=== PATIENT | male | born 1980 | race Caucasian/White ===

== ENCOUNTER 2020-06-22 15:09 | Emergency (ER) | payer BC ==
[2020-06-22] MEDS ORDERED: Diphtheria,Pertussis(Acell),Tetanus Vaccine 0.5 ML Syringe IM ONE (15:15)
--- NOTE | 2020-06-22 15:18 | EDM.PDOC ---
ED HPI GENERAL MEDICAL PROBLEM - General Chief Complaint: Upper Extremity Injury/Pain Stated Complaint: NAIL THROUGH FINGER ON LEFT HAND Time Seen by Provider: 06/22/20 15:16 - History of Present Illness INITIAL COMMENTS - FREE TEXT/NARRATIVE: History of present illness: Patient presents with a nail gun injury to his left hand. Just prior to arrival he was using a framing nail her and accidentally put a nail to the tips of his left second and third fingers. The patient has no other complaints no other injuries tetanus is not up-to-date he is having finger pain he denies any other medical problems movement makes it worse being still makes it better. Review of systems: As per history of present illness and below otherwise all systems reviewed and negative. Past medical history: As per history of present illness and as reviewed below otherwise noncontributory. Surgical history: As per history of present illness and as reviewed below otherwise noncontributory. Social history: No reported history of drug or alcohol abuse. Family history: As per history of present illness and as reviewed below otherwise noncontributory. Physical exam: HEENT: Atraumatic, normocephalic, pupils reactive, negative for conjunctival pallor or scleral icterus, mucous membranes moist, throat clear, neck supple, nontender, trachea midline. Lungs: Clear to auscultation, breath sounds equal bilaterally, chest nontender. Heart: S1S2, regular, negative for clicks, rubs, or JVD. Abdomen: Soft, nondistended, nontender. Negative for masses or hepatosplenomegaly. Negative for costovertebral tenderness. Pelvis: Stable nontender. Genitourinary: Deferred. Rectal: Deferred. Extremities: Atraumatic, negative for cords or calf pain. Neurovascular unremarkable. There is a framing nail going through the tips of the index and middle fingers of the left nondominant hand at an oblique angle from lateral to medial. Neuro: Awake, alert, oriented. Cranial nerves II through XII unremarkable. Cerebellum unremarkable. Motor and sensory unremarkable throughout. Exam nonfocal. Diagnostics: [] Therapeutics: [] Impression: [] Plan: [] Definitive disposition and diagnosis as appropriate pending reevaluation and review of above. left fingers Pain Score (Numeric/FACES): 3 - Related Data Allergies Allergy/AdvReac Type Severity Reaction Status Date / Time No Known Allergies Allergy Verified 08/24/20 15:12 Home Meds: Home Meds Amoxicillin/Clavulanate K [Augmentin 500-125 MG] 1 tab PO BID #20 tab 06/22/20 [Rx] Citalopram [Citalopram HBr] 30 mg PO DAILY 06/22/20 [History] Naproxen [Naprosyn] 500 mg PO Q12HR #20 tab 06/22/20 [Rx] Past Medical History HEENT History: Reports: None Cardiovascular History: Reports: None Respiratory History: Reports: None Gastrointestinal History: Reports: None Genitourinary History: Reports: None Musculoskeletal History: Reports: None Neurological History: Reports: None Psychiatric History: Reports: None Endocrine/Metabolic History: Reports: None Hematologic History: Reports: None Immunologic History: Reports: None Oncologic (Cancer) History: Reports: None Dermatologic History: Reports: None - Infectious Disease History Infectious Disease History: Reports: Chicken Pox - Past Surgical History Head Surgeries/Procedures: Reports: None HEENT Surgical History: Reports: None Cardiovascular Surgical History: Reports: None Respiratory Surgical History: Reports: None GI Surgical History: Reports: None Male Surgical History: Reports: Vasectomy Endocrine Surgical History: Reports: None Neurological Surgical History: Reports: None Musculoskeletal Surgical History: Reports: Other (See Below) Other Musculoskeletal Surgeries/Procedures:: ligament repair 3rd left digit Oncologic Surgical History: Reports: None Dermatological Surgical History: Reports: None Social & Family History - Family History Family Medical History: Noncontributory - Tobacco Use Smoking Status *Q: Never Smoker Second Hand Smoke Exposure: No - Caffeine Use Caffeine Use: Reports: Coffee, Soda - Recreational Drug Use Recreational Drug Use: No Review of Systems - Review of Systems Review Of Systems: See Below ED EXAM, GENERAL - Physical Exam Exam: See Below Course - Vital Signs Text/Narrative:: 2 view left hand read interpreted by me there is a foreign body nail going through the tips of the fingers with no bony involvement Procedure: Digital blocks in the second and third finger were performed with 5 mils 1% lidocaine with good anesthetic effect needle-nose pliers then used to remove the foreign body from the fingers. Without complication wounds were then irrigated extensively in the sink with hot soap and water Patient's tetanus will be updated Patient be discharged home with Augmentin. And naproxen Last Recorded V/S: Last Vital Signs Temp 36.2 C 08/24/20 15:12 Pulse 95 06/22/20 15:12 Resp 18 06/22/20 15:12 BP 148/82 H 06/22/20 15:12 Pulse Ox 98 06/22/20 15:12 - Orders/Labs/Meds Orders: Active Orders 24 hr Category Date Time Status Vaccines to be Administered [RC] PER UNIT ROUTINE Care 06/22/20 15:15 Active Hand 2V Lt [CR] Stat Exams 06/22/20 15:15 Taken Meds: Medications Discontinued Medications Generic Name Dose Route Start Last Admin Trade Name Kaylin PRN Reason Stop Dose Admin Diphtheria/Tetanus/Acell Pertussis 0.5 ml 06/22/20 15:15 06/22/20 15:39 Adacel IM 06/22/20 15:16 0.5 ml .ONCE ONE Administration Lidocaine HCl 10 ml 06/22/20 15:16 06/22/20 15:44 Xylocaine-Mpf 1% INJECT 06/22/20 15:17 10 ml ONETIME ONE Administration Departure - Departure Time of Disposition: 16:06 Disposition: Home, Self-Care 01 Condition: Good Clinical Impression: Foreign body in skin of finger - Discharge Information *PRESCRIPTION DRUG MONITORING PROGRAM REVIEWED*: Not Applicable *COPY OF PRESCRIPTION DRUG MONITORING REPORT IN PATIENT ELIAS: Not Applicable Instructions: Hand or Foot Foreign Body, Adult Forms: ED Department Discharge Additional Instructions: The following information is given to patients seen in the emergency department who are being discharged to home. This information is to outline your options for follow-up care. We provide all patients seen in our emergency department with a follow-up referral. The need for follow-up, as well as the timing and circumstances, are variable depending upon the specifics of your emergency department visit. If you don't have a primary care physician on staff, we will provide you with a referral. We always advise you to contact your personal physician following an emergency department visit to inform them of the circumstance of the visit and for follow-up with them and/or the need for any referrals to a consulting specialist. The emergency department will also refer you to a specialist when appropriate. This referral assures that you have the opportunity for follow-up care with a specialist. All of these measure are taken in an effort to provide you with optimal care, which includes your follow-up. Under all circumstances we always encourage you to contact your private physician who remains a resource for coordinating your care. When calling for follow-up care, please make the office aware that this follow-up is from your recent emergency room visit. If for any reason you are refused follow-up, please contact the [facility] Emergency Department at and asked to speak to the emergency department charge nurse. [facility] - [facility] [address] [place] [id number] [facility] [address] [place] [id number] Sepsis Event Note (ED) - Evaluation Sepsis Screening Result: No Definite Risk - Focused Exam Vital Signs: Vital Signs Temp Pulse Resp BP Pulse Ox 06/22/20 15:12 36.2 C 95 18 148/82 H 98 - My Orders Last 24 Hours: My Active Orders 06/22/20 15:15 Vaccines to be Administered [RC] PER UNIT ROUTINE Hand 2V Lt [CR] Stat - Assessment/Plan Last 24 Hours: My Active Orders 06/22/20 15:15 Vaccines to be Administered [RC] PER UNIT ROUTINE Hand 2V Lt [CR] Stat
--- NOTE | 2020-06-22 15:57 | CR ---
Left hand: 2 views left hand were obtained. Metallic nail is projected within the distal second and third fingers. No discrete fracture is identified on current study. No proximal abnormality is seen. Impression: 1. Metallic nail as noted above. Diagnostic code #3 This report was dictated in MDT
== END 2020-06-22 16:18 | disposition home or self-care (01) ==
LOC: MW.ED 15:09
DX: S60.451A Superficial foreign body of left index finger, initial encounter (principal); S60.453A Superficial foreign body of left middle finger, initial encounter; Z79.899 Other long term (current) drug therapy; Z23 Encounter for immunization; W45.8XXA Other foreign body or object entering through skin, initial encounter
CPT/HCPCS: 64450; 73120; 90471; 90715; 99283; J2001

== ENCOUNTER 2022-10-25 12:28 | Emergency (ER) | payer BC | END 2022-10-25 12:40 | disposition home or self-care (01) | LOC: MW.ED 12:28 | DX: U07.1 COVID-19 (principal); Z79.899 Other long term (current) drug therapy | CPT/HCPCS: 99283 ==